=== PATIENT | female | born 2000 | race Caucasian/White ===

== ENCOUNTER 2022-10-19 22:35 | Inpatient (IN) | payer BC, OTHER ==
[~2022-10-19 22:35] MED LIST: Bupivacaine/Epinephrine 0.25% 30 ML VIAL ONE
[2022-10-19 22:56] VITALS: BMI 28.8
[2022-10-19 23:36] LABS: Fetal Membranes Rupture RUPTURE DETECTED (No Rupture)
[2022-10-20] MEDS ORDERED: Fentanyl 2 mcg/Bup 0.1% Cadd 100 ML ONE (00:08)
[2022-10-20] MEDS ORDERED: HYDROcodone/Acetaminophen 5/325 mg Tablet PO PRN ×4 (00:30→17:47)
[2022-10-20] MEDS ORDERED: Carboprost 250 MCG/ML AMP IM PRN (00:30)
[2022-10-20] MEDS ORDERED: NS w/ Oxytocin 30 units 500 ML IV SCH (00:30)
[2022-10-20] MEDS ORDERED: Acetaminophen 500 MG TAB PO PRN (00:30)
[2022-10-20] MEDS ORDERED: Lidocaine 1% (PF) 30 ML VIAL SC PRN (00:30)
[2022-10-20] MEDS ORDERED: Methylergonovine 0.2 MG/ML VIAL IM PRN (00:30)
[2022-10-20] MEDS ORDERED: Butorphanol Tartrate 1 MG/ML VIAL SLOW IVP PRN (00:30)
[2022-10-20] MEDS ORDERED: hydrALAZINE 20 MG/ML VIAL SLOW IVP PRN ×2 (00:30→17:47)
[2022-10-20] MEDS ORDERED: Promethazine HCl 25 MG/ML VIAL IM PRN ×3 (00:30→17:47)
[2022-10-20] MEDS ORDERED: Ondansetron PF 4 MG/2 ML Vial IVP PRN ×2 (00:30→17:47)
[2022-10-20] MEDS ORDERED: Misoprostol 200 MCG TAB RC PRN (00:30)
[2022-10-20] MEDS ORDERED: NS w/ Oxytocin 30 units 500 ML IVPB SCH (00:30)
[2022-10-20] MEDS ORDERED: Ibuprofen 800 MG TAB PO PRN (00:30)
[2022-10-20 00:37] LABS: Hemoglobin 12.4 g/dL (12.0-15.5); Mean Corpuscular HGB CONC 34.5 g/dL (32.0-36.0); Mean Corpuscular Hemoglobin 29.9 pg (27.0-33.0); Mean Corpuscular Volume 86.5 fl (81.6-98.3); Mean Platelet Volume 10.1 fl (7.4-10.4); Platelet Count 164 10x3/uL (150-450); RBC Distribution Width 16.1 % (11.5-14.5); Red Blood Cell (RBC) Count 4.15 10x6/uL (3.90-5.03); White Blood Cell (WBC) Count 11.5 10x3/uL (3.5-10.5)
[2022-10-20] MEDS: Lactated Ringer's 1,000 ML IV SCH ×2 (00:42→17:49)
[2022-10-20 00:44] LABS: Syphilis Antibody Nonreactive (Nonreactive); Syphilis Antibody Index 0.03 S/CO (<1.00 Non-Reactive)
[2022-10-20 00:45] LABS: SARS-CoV-2 NAA Rapid Test Not Detected (NotDetected)
[2022-10-20 00:48] LABS: HBSAg Index 0.16 S/CO (0-0.99); Hep B Surf Ag Non-Reactive S/CO (NonReactive)
[2022-10-20] MEDS ORDERED: Fentanyl 100 MCG/2 ML VIAL ONE (00:48)
[2022-10-20] MEDS ORDERED: Naloxone HCl 0.4 mg/ml Vial IVP PRN ×2 (01:28)
[2022-10-20] MEDS ORDERED: Lactated Ringer's 500 ML IV PRN (01:28)
[2022-10-20] MEDS ORDERED: ePHEDrine Sulfate 50 MG/10 ML VIAL SLOW IVP PRN (01:28)
[2022-10-20] MEDS ORDERED: Acetaminophen 325 MG TAB PO PRN (01:28)
[2022-10-20] MEDS ORDERED: diphenhydrAMINE 50 MG/ML VIAL IVP PRN (01:28)
[2022-10-20] MEDS ORDERED: Moisturizing Cream (Eucerin) 113 GM JAR TOP PRN (01:28)
[2022-10-20] MEDS ORDERED: Communication Order-Pharmacy FS SCH (01:30)
[2022-10-20] MEDS: Ondansetron PF 4 MG/2 ML Vial IVP PRN ×2 (06:57→15:41)
[2022-10-20] MEDS: Fentanyl 2 mcg/Bupivacaine 0.1% Cassette 100 ML EPIDURAL SCH ×2 (07:36→13:30)
[2022-10-20] MEDS ORDERED: Ondansetron PF 4 MG/2 ML Vial ONE (15:14)
[2022-10-20] MEDS ORDERED: Milk Of Magnesia 30 ML UDCUP PO PRN (17:47)
[2022-10-20] MEDS ORDERED: Preparation H Ointment 28 GM TUBE PR PRN (17:47)
[2022-10-20] MEDS ORDERED: Benzocaine-Menthol 82.5 ML CAN TOP PRN (17:47)
[2022-10-20] MEDS ORDERED: Bisacodyl 10 MG SUPP PR PRN (17:47)
[2022-10-20] MEDS ORDERED: diphenhydrAMINE 25 MG CAP PO PRN (17:47)
[2022-10-20] MEDS ORDERED: Boostrix 0.5 ML (Tdap) VIAL (>/=7 yrs of age) IM ONE (17:47)
[2022-10-20] MEDS: Docusate 100 MG CAP PO SCH (20:14)
[2022-10-20] MEDS ORDERED: Ibuprofen 800 MG TAB PO SCH (22:00)
[2022-10-20] MEDS: Ibuprofen 800 MG TAB PO SCH (23:21)
[2022-10-21] MEDS: Ibuprofen 800 MG TAB PO SCH ×3 (08:15→23:06)
[2022-10-21] MEDS: Docusate 100 MG CAP PO SCH ×2 (08:16→21:24)
[2022-10-21] MEDS: Ferrous Sulfate 325 MG TAB PO SCH ×2 (08:18→15:55)
[2022-10-22] MEDS: Ferrous Sulfate 325 MG TAB PO SCH (07:31)
[2022-10-22 07:46] VITALS: BP 139/80; TEMP 98.3
[2022-10-22] MEDS: Ibuprofen 800 MG TAB PO SCH (09:24)
[2022-10-22] MEDS: Docusate 100 MG CAP PO SCH (09:25)
== END 2022-10-22 13:30 | disposition home or self-care (01) | DRG 807 ==
LOC: CSHLD/OP 22:35 → CSHLD 23:49 → CSHPP 10-20 18:01
PROVIDERS: ADMIT Student in an Organized Health Care Education/Training Program; ATTEND Student in an Organized Health Care Education/Training Program
PROC: 10D07Z6 Extraction of Products of Conception, Vacuum, Via Natural or Artificial Opening (ICD-10-PCS; principal; 2022-10-20)
PROC: 0KQM0ZZ Repair Perineum Muscle, Open Approach (ICD-10-PCS; 2022-10-20)
DX: O42.02 Full-term premature rupture of membranes, onset of labor within 24 hours of rupture (principal); Z37.0 Single live birth; Z3A.39 39 weeks gestation of pregnancy; Z20.822 Contact with and (suspected) exposure to COVID-19; O99.344 Other mental disorders complicating childbirth; F41.9 Anxiety disorder, unspecified; F32.A Depression, unspecified; O75.81 Maternal exhaustion complicating labor and delivery; O70.1 Second degree perineal laceration during delivery; O69.81X0 Labor and delivery complicated by cord around neck, without compression, not applicable or unspecified
CPT/HCPCS: 51702; 84112; 85027; 86780; 86850; 86900; 86901; 87340; 99285; J2405; J2590; J3010; J7120; U0002